=== PATIENT | male | born 1955 | race Caucasian/White ===

== ENCOUNTER 2023-02-02 07:42 | Emergency (ER) | payer BC ==
[~2023-02-02] VITALS: Ht 167.6 cm; Wt 99.8 kg
[2023-02-02 08:14] VITALS: BP_SYST 170; PULSE 66; RESP 18; TEMP 98; O2SAT 96
[2023-02-02] MEDS ORDERED: iohexoL 350 mgI/mL, 100 ML INFUS..BTL IV ONE (08:50)
[2023-02-02 08:56] LABS: BASOPHILS % (AUTO) 0.6 % (0.0-2.0); EOSINOPHILS # (AUTO) 0.1 K/uL (0.0-0.4); LYMPHOCYTES # (AUTO) 1.3 K/uL (1.0-5.5); RED CELL DISTRIBUTION WIDTH 12.3 % (9.0-15.0)
[2023-02-02 09:01] LABS: EOSINOPHILS % (AUTO) 2.5 % (0.0-4.0); HEMATOCRIT 43.5 % (36-54); LYMPHOCYTES % (AUTO) 24.7 % (20.5-51.5); MEAN CORPUSCULAR HEMOGLOBIN 32 pg (27-31); MEAN CORPUSCULAR HGB CONC 35 % (32-36); MEAN CORPUSCULAR VOLUME 92 fL (79.0-98.0); MONOCYTES # (AUTO) 0.3 K/uL (0.0-1.0); MONOCYTES % (AUTO) 5.9 % (1.7-9.3); NEUTROPHILS # (AUTO) 3.6 K/uL (1.8-7.7); NEUTROPHILS % (AUTO) 66.3 % (40.0-70.0); PLATELET COUNT (AUTO) 201 K/uL (130-430); RED BLOOD CELL COUNT(AUTO) 4.72 MIL/uL (4.2-6.2); WHITE BLOOD COUNT (AUTO) 5.4 K/uL (4.8-10.8)
[2023-02-02 09:12] LABS: ANION GAP 8 (5-15); CALCIUM 8.7 mg/dL (8.4-11.0); CHLORIDE 103 mmol/L (98-107); CREATININE 1.08 mg/dL (0.55-1.30); GFR AFRICAN AMERICAN 87 mL/min (>90); GLUCOSE 142 mg/dL (74-106); UREA NITROGEN, BLOOD 18 mg/dL (8-21)
[2023-02-02 09:28] LABS: ALBUMIN 3.8 g/dL (3.4-4.8); ASPARTATE AMINOTRANSFERASE 10 U/L (10-37); TOTAL BILIRUBIN 0.3 mg/dL (0.0-1.0)
[2023-02-02 09:43] LABS: ALANINE AMINOTRANSFERASE 8 U/L (12-78)
[2023-02-02 13:20] VITALS: BP_SYST 125; PULSE 74; RESP 18; TEMP 97.3; O2SAT 97
== END 2023-02-02 13:22 | disposition home or self-care (01) ==
LOC: SED 07:42
DX: R42 Dizziness and giddiness (principal); G96.08 Other cranial cerebrospinal fluid leak; R11.0 Nausea; R51.9 Headache, unspecified; I10 Essential (primary) hypertension; Z79.899 Other long term (current) drug therapy
CPT/HCPCS: 99285; 70496; 80053; 85025; 87040; 84484; 36415; 93005; 70498; 83605; 70450; 76376; Q9967